=== PATIENT | male | born 1950 | race Caucasian/White ===

== ENCOUNTER 2017-11-05 18:33 | Inpatient (IN) | payer MEDICARE ==
[~2017-11-05] VITALS: Ht 193 cm; Wt 108.6 kg
[2017-11-05 18:57] LABS: BASOPHILS % (AUTO) 0.5 % (0-1); EOSINOPHILS # (AUTO) 0.3 X10'3 (0-0.9); EOSINOPHILS % (AUTO) 3.6 % (0-6); HEMATOCRIT 47.3 % (42.0-52.0); HEMOGLOBIN 16.5 g/dl (14.0-17.9); LYMPHOCYTES # (AUTO) 2.8 X10'3 (1.1-4.8); LYMPHOCYTES % (AUTO) 32.8 % (21-51); MEAN CORPUSCULAR HEMOGLOBIN 29.1 PG (27.0-31.0); MEAN CORPUSCULAR HGB CONC 34.8 % (33.0-36.5); MEAN CORPUSCULAR VOLUME 83.8 FL (78-98); MONOCYTES # (AUTO) 0.5 X10'3 (0-0.9); NEUTROPHILS # (AUTO) 4.9 X10'3 (1.8-7.7); NEUTROPHILS % (AUTO) 57.1 % (42-75); PLATELET COUNT 290 X10'3 (140-440); RED BLOOD COUNT 5.65 X10'6 (4.70-6.10); RED CELL DISTRIBUTION WIDTH 14.2 % (11.5-14.5); WHITE BLOOD COUNT 8.6 X10'3 (4.5-11.0)
[2017-11-05] MEDS ORDERED: APIX5TAB3 PO (18:57)
[2017-11-05] MEDS ORDERED: TAMS0.4C32 PO (18:58)
[2017-11-05] MEDS ORDERED: ATOR10TA87 PO (18:58)
[2017-11-05] MEDS ORDERED: FINA5TAB11 PO (18:58)
[2017-11-05] MEDS ORDERED: aspirin 81mg tab.chew PO ONE (19:05)
[2017-11-05] MEDS ORDERED: metoprolol tartrate 1mg/ml inj IV ONE (19:05)
[2017-11-05 19:09] LABS: PARTIAL THROMBOPLASTIN TIME 28 SECONDS (22-32); PROTHROMBIN TIME 10.3 SECONDS (9.0-12.0)
[2017-11-05 19:13] LABS: ALANINE AMINOTRANSFERASE 19 U/L (12-78); ALBUMIN 3.6 G/DL (3.4-5.0); ALBUMIN/GLOBULIN RATIO 1.1 (1.1-1.5); ALKALINE PHOSPHATASE 65 IU/L (46-116); ANION GAP 10 (8-16); ASPARTATE AMINO TRANSFERASE 12 U/L (10-37); BILIRUBIN,TOTAL 0.3 MG/DL (0.1-1.0); BLOOD UREA NITROGEN 19 MG/DL (7-18); BUN/CREATININE RATIO 12.9 (5.4-32.0); CALCIUM 9.6 MG/DL (8.5-10.1); CHLORIDE 103 MMOL/L (99-107); CREATININE 1.47 MG/DL (0.60-1.10); GLUCOSE 249 MG/DL (70-104); POTASSIUM 4.5 MMOL/L (3.5-5.1); SODIUM 137 MMOL/L (135-145); TOTAL CARBON DIOXIDE 24.3 MMOL/L (24-32); eGFR 48 ML/MIN
[2017-11-05 19:34] LABS: MAGNESIUM 1.8 MG/DL (1.5-2.4)
[2017-11-05] MEDS ORDERED: normal saline 1000ml 1,000 ML IV ONE (20:10)
[2017-11-05] MEDS ORDERED: metoprolol tartrate 50mg tablet PO ONE (20:20)
[2017-11-05] MEDS ORDERED: acetaminophen 325mg tablet PO PRN ×2 (20:20)
[2017-11-05] MEDS ORDERED: magnesium hydroxide 30ml (MOM) UD suspension PO PRN (20:20)
[2017-11-05] MEDS ORDERED: insulin glargine (Lantus) pen - multi-dose SQ ONE (20:20)
[2017-11-05] MEDS ORDERED: ondansetron/PF 4mg/2ml inj IV PRN (20:20)
[2017-11-05] MEDS ORDERED: mag hydrox/Alum hydrox/simeth 30ml oral suspension PO PRN (20:20)
[2017-11-05] MEDS ORDERED: MESSAGE TO PHARMACY PO ONE (20:25)
[2017-11-05] MEDS ORDERED: dextrose ORAL solution 15 GM/59 ML bottle PO PRN ×2 (20:25)
[2017-11-05] MEDS ORDERED: glucagon, human recombinant 1mg kit SUBCUT PRN (20:25)
[2017-11-05] MEDS ORDERED: dextrose 50%-water 50ml dispensing syringe IV PRN ×2 (20:25)
[2017-11-05] MEDS ORDERED: insulin Lispro (HumaLOG) vial - multi-dose SQ SCH (20:25)
[2017-11-05] MEDS: apixaban 5mg tablet PO SCH (21:00)
[2017-11-05] MEDS ORDERED: insulin glargine (Lantus) pen - multi-dose SQ SCH (21:00)
[2017-11-05] MEDS ORDERED: tamsulosin 0.4mg capsule PO SCH (21:00)
[2017-11-05 21:20] VITALS: BP 151/99
[2017-11-05 23:00] VITALS: BP 109/64
[2017-11-06 00:13] LABS: HEMOGLOBIN A1C 6.7 % (4.5-6.2)
[2017-11-06 03:00] VITALS: BP 104/72
[2017-11-06 03:42] LABS: BASOPHILS # (AUTO) 0.1 X10'3 (0-0.2); BASOPHILS % (AUTO) 0.8 % (0-1); EOSINOPHILS # (AUTO) 0.4 X10'3 (0-0.9); EOSINOPHILS % (AUTO) 3.9 % (0-6); HEMATOCRIT 44.8 % (42.0-52.0); HEMOGLOBIN 15.5 g/dl (14.0-17.9); LYMPHOCYTES # (AUTO) 3.4 X10'3 (1.1-4.8); MEAN CORPUSCULAR HEMOGLOBIN 29.4 PG (27.0-31.0); MEAN CORPUSCULAR HGB CONC 34.7 % (33.0-36.5); MEAN CORPUSCULAR VOLUME 84.6 FL (78-98); MEAN PLATELET VOLUME 9.1 FL (7.4-10.4); MONOCYTES # (AUTO) 0.6 X10'3 (0-0.9); MONOCYTES % (AUTO) 6.7 % (2-12); NEUTROPHILS # (AUTO) 4.8 X10'3 (1.8-7.7); NEUTROPHILS % (AUTO) 51.6 % (42-75); PLATELET COUNT 256 X10'3 (140-440); RED BLOOD COUNT 5.29 X10'6 (4.70-6.10); RED CELL DISTRIBUTION WIDTH 14.2 % (11.5-14.5); WHITE BLOOD COUNT 9.2 X10'3 (4.5-11.0)
[2017-11-06 05:30] VITALS: BP 112/73
[2017-11-06] MEDS: apixaban 5mg tablet PO SCH (07:29)
[2017-11-06] MEDS ORDERED: finasteride 5mg tablet PO SCH (08:00)
[2017-11-06] MEDS ORDERED: metoprolol tartrate 25mg tablet PO SCH (08:00)
[2017-11-06] MEDS ORDERED: atorvastatin 10mg tablet PO SCH (08:00)
[2017-11-06 11:00] VITALS: BP 102/61
== END 2017-11-06 14:45 | disposition home or self-care (01) | DRG 309 ==
LOC: ER 18:34 → ED HOLD 20:19 → PCU 3S 21:07
PROVIDERS: ADMIT Internal Medicine; ATTEND Internal Medicine
DX: I48.91 Unspecified atrial fibrillation (principal); S37.009A Unspecified injury of unspecified kidney, initial encounter; E78.5 Hyperlipidemia, unspecified; E11.9 Type 2 diabetes mellitus without complications; E78.00 Pure hypercholesterolemia, unspecified; N40.0 Benign prostatic hyperplasia without lower urinary tract symptoms; G89.29 Other chronic pain; M54.9 Dorsalgia, unspecified; F17.210 Nicotine dependence, cigarettes, uncomplicated; Z79.899 Other long term (current) drug therapy; Z79.01 Long term (current) use of anticoagulants; Z71.6 Tobacco abuse counseling; X58.XXXA Exposure to other specified factors, initial encounter; Y93.89 Activity, other specified; Y92.89 Other specified places as the place of occurrence of the external cause; Y99.8 Other external cause status
CPT/HCPCS: 36415; 71045; 80053; 82948; 83036; 83735; 83880; 84484; 85025; 85610; 85730; 87070; 93306; 96374; 99285; J1815; J3490; J7030

== ENCOUNTER 2018-02-22 06:51 | Day surgery (SDC) | payer MEDICARE ==
[2018-02-21 10:09] LABS: BASOPHILS % (AUTO) 0.5 % (0-1); EOSINOPHILS # (AUTO) 0.4 X10'3 (0-0.9); EOSINOPHILS % (AUTO) 4.3 % (0-6); HEMATOCRIT 44.6 % (42.0-52.0); HEMOGLOBIN 14.9 g/dl (14.0-17.9); LYMPHOCYTES # (AUTO) 2.5 X10'3 (1.1-4.8); LYMPHOCYTES % (AUTO) 29.1 % (21-51); MEAN CORPUSCULAR HEMOGLOBIN 28.8 PG (27.0-31.0); MEAN CORPUSCULAR HGB CONC 33.5 % (33.0-36.5); MEAN CORPUSCULAR VOLUME 86.1 FL (78-98); MEAN PLATELET VOLUME 8.5 FL (7.4-10.4); MONOCYTES # (AUTO) 0.5 X10'3 (0-0.9); MONOCYTES % (AUTO) 5.4 % (2-12); NEUTROPHILS # (AUTO) 5.3 X10'3 (1.8-7.7); NEUTROPHILS % (AUTO) 60.7 % (42-75); PLATELET COUNT 260 X10'3 (140-440); RED BLOOD COUNT 5.18 X10'6 (4.70-6.10); RED CELL DISTRIBUTION WIDTH 14.2 % (11.5-14.5); WHITE BLOOD COUNT 8.6 X10'3 (4.5-11.0)
[2018-02-21 10:21] LABS: ALBUMIN 3.6 G/DL (3.4-5.0); ANION GAP 8 (8-16); BLOOD UREA NITROGEN 21 MG/DL (7-18); BUN/CREATININE RATIO 16.5 (5.4-32.0); CHLORIDE 105 MMOL/L (99-107); CREATININE 1.27 MG/DL (0.60-1.10); GLUCOSE 164 MG/DL (70-104); POTASSIUM 4.5 MMOL/L (3.5-5.1); SODIUM 141 MMOL/L (135-145); TOTAL CARBON DIOXIDE 27.9 MMOL/L (24-32); eGFR 57 ML/MIN
[2018-02-21 10:44] LABS: INR 1.1 INR; PROTHROMBIN TIME 10.7 SECONDS (9.0-12.0)
[~2018-02-22] VITALS: Ht 193 cm; Wt 117.3 kg
[~2018-02-22 06:51] MED LIST: APIX5TAB3 PO; ATOR10TA87 PO; FINA5TAB11 PO; TAMS0.4C32 PO
[2018-02-22 07:00] VITALS: BP 144/80
[2018-02-22] MEDS ORDERED: LORazepam 0.5 MG tablet PO ONE (07:35)
[2018-02-22] MEDS ORDERED: diphenhydrAMINE 25mg capsule PO ONE (07:35)
[2018-02-22] MEDS ORDERED: fentaNYL/PF 50MCG/1 ML 2ML syringe IV ONE (07:35)
[2018-02-22] MEDS ORDERED: amiodarone in dextrose, iso-osm 150mg/100ml bag IV ONE (07:35)
[2018-02-22] MEDS ORDERED: MIDAZolam 5mg/ml 2ml vial IV ONE (07:35)
[2018-02-22] MEDS ORDERED: atropine 0.1mg/ml 10ml syringe IV ONE (07:35)
[2018-02-22] MEDS ORDERED: normal saline 1000ml 1,000 ML IV SCH (07:35)
== END 2018-02-22 08:00 | disposition home or self-care (01) ==
LOC: SSTAY O 06:51
PROVIDERS: ATTEND Internal Medicine Cardiovascular Disease
DX: I48.0 Paroxysmal atrial fibrillation (principal); Z53.8 Procedure and treatment not carried out for other reasons; E11.9 Type 2 diabetes mellitus without complications; I10 Essential (primary) hypertension; M19.90 Unspecified osteoarthritis, unspecified site; E66.9 Obesity, unspecified; E78.5 Hyperlipidemia, unspecified; G47.33 Obstructive sleep apnea (adult) (pediatric); F17.210 Nicotine dependence, cigarettes, uncomplicated; Z68.31 Body mass index [BMI] 31.0-31.9, adult; Z85.828 Personal history of other malignant neoplasm of skin; Z72.89 Other problems related to lifestyle; Z79.01 Long term (current) use of anticoagulants; Z79.4 Long term (current) use of insulin; Z87.442 Personal history of urinary calculi; Z79.899 Other long term (current) drug therapy; Z98.890 Other specified postprocedural states; Z82.49 Family history of ischemic heart disease and other diseases of the circulatory system
CPT/HCPCS: 36415; 80048; 85025; 85610; 93005; J7030

== ENCOUNTER 2019-02-18 09:32 | Emergency (ER) | payer MEDICARE ==
[~2019-02-18] VITALS: Ht 193 cm; Wt 116.6 kg
[2019-02-18 10:45] LABS: BASOPHILS # (AUTO) 0.1 X10'3 (0-0.2); BASOPHILS % (AUTO) 0.7 % (0-1); EOSINOPHILS # (AUTO) 0.2 X10'3 (0-0.9); HEMATOCRIT 46.8 % (42.0-52.0); LYMPHOCYTES # (AUTO) 2.5 X10'3 (1.1-4.8); LYMPHOCYTES % (AUTO) 21.8 % (21-51); MEAN CORPUSCULAR HEMOGLOBIN 29.9 PG (27.0-31.0); MEAN CORPUSCULAR HGB CONC 34.1 g/dL (33.0-36.5); MEAN CORPUSCULAR VOLUME 87.5 FL (78-98); MONOCYTES # (AUTO) 0.8 X10'3 (0-0.9); MONOCYTES % (AUTO) 6.6 % (2-12); NEUTROPHILS % (AUTO) 68.9 % (42-75); PLATELET COUNT 265 X10'3 (140-440); RED BLOOD COUNT 5.35 X10'6 (4.70-6.10); RED CELL DISTRIBUTION WIDTH 14.2 % (11.5-14.5); WHITE BLOOD COUNT 11.6 X10'3 (4.5-11.0)
[2019-02-18 10:52] LABS: CLARITY,URINE CLOUDY (Clear); COLOR,URINE YELLOW (Yellow); GLUCOSE, URINE NEGATIVE (Neg); KETONES,URINE NEGATIVE (Neg); LEUKOCYTE ESTERASE ,URINE NEGATIVE (Neg); NITRITES, URINE NEGATIVE (Neg); OCCULT BLOOD,URINE NEGATIVE (Neg); PH,URINE 5.5 (4.8-8.0); PROTEIN,URINE TRACE mg/dl (Neg)
[2019-02-18 10:57] LABS: UA COLLECTION TYPE VOIDED
[2019-02-18 10:59] LABS: PARTIAL THROMBOPLASTIN TIME 30 SECONDS (22-32)
[2019-02-18 10:59] LABS: BACTERIA,URINE 2+ /HPF (Neg); MUCUS STRANDS MODERATE /LPF (Neg); RBC,URINE 0-2 /HPF (0-2); SQUAMOUS EPITHELIAL CELL,UR FEW /LPF (FEW)
[2019-02-18 11:19] LABS: ALANINE AMINOTRANSFERASE 17 U/L (12-78); ALBUMIN 3.3 G/DL (3.4-5.0); ALBUMIN/GLOBULIN RATIO 0.9 (1.1-1.5); ALKALINE PHOSPHATASE 82 IU/L (46-116); ANION GAP 8 (8-16); ASPARTATE AMINO TRANSFERASE 11 U/L (10-37); BILIRUBIN,TOTAL 0.8 MG/DL (0.1-1.0); BLOOD UREA NITROGEN 14 MG/DL (7-18); BUN/CREATININE RATIO 11.9 (5.4-32.0); CHLORIDE 104 MMOL/L (99-107); CREATININE 1.18 MG/DL (0.60-1.10); GLUCOSE 202 MG/DL (70-104); MAGNESIUM 1.7 MG/DL (1.5-2.4); POTASSIUM 4.4 MMOL/L (3.5-5.1); SODIUM 138 MMOL/L (135-145); TOTAL CARBON DIOXIDE 26.3 MMOL/L (24-32); TOTAL PROTEIN 6.8 G/DL (6.4-8.2); eGFR 62 ML/MIN
[2019-02-18] MEDS ORDERED: levoFLOXACIN 750MG TABLET PO ONE (11:35)
[2019-02-18] MEDS ORDERED: metroNIDAZOLE 500mg tablet PO ONE (11:35)
[2019-02-18] MEDS ORDERED: METR-159 PO (11:40)
[2019-02-18] MEDS ORDERED: LEVO750T21 PO (11:40)
[2019-02-18 12:16] VITALS: BP 114/63
== END 2019-02-18 12:18 | disposition home or self-care (01) ==
LOC: ER 09:32
DX: K57.32 Diverticulitis of large intestine without perforation or abscess without bleeding (principal); N39.0 Urinary tract infection, site not specified; E78.00 Pure hypercholesterolemia, unspecified; Z87.442 Personal history of urinary calculi; Z79.899 Other long term (current) drug therapy
CPT/HCPCS: 36415; 71045; 74176; 80053; 81001; 83605; 83735; 84145; 85025; 85610; 85730; 87040; 87088; 93005; 99284; J3490

== ENCOUNTER 2020-03-05 06:58 | Day surgery (SDC) | payer MEDICARE ==
[2020-03-04 12:33] LABS: BASOPHILS # (AUTO) 0.1 X10'3 (0-0.2); BASOPHILS % (AUTO) 0.8 % (0-1); EOSINOPHILS # (AUTO) 0.1 X10'3 (0-0.9); EOSINOPHILS % (AUTO) 1.2 % (0-6); HEMATOCRIT 51.2 % (42.0-52.0); HEMOGLOBIN 17.3 g/dl (14.0-17.9); LYMPHOCYTES # (AUTO) 2.3 X10'3 (1.1-4.8); LYMPHOCYTES % (AUTO) 25.2 % (21-51); MEAN CORPUSCULAR HEMOGLOBIN 29.8 PG (27.0-31.0); MEAN CORPUSCULAR HGB CONC 33.9 g/dL (33.0-36.5); MEAN PLATELET VOLUME 9.1 FL (7.4-10.4); MONOCYTES # (AUTO) 0.5 X10'3 (0-0.9); MONOCYTES % (AUTO) 5.7 % (2-12); NEUTROPHILS # (AUTO) 6.1 X10'3 (1.8-7.7); NEUTROPHILS % (AUTO) 67.1 % (42-75); PLATELET COUNT 278 X10'3 (140-440); RED BLOOD COUNT 5.81 X10'6 (4.70-6.10); RED CELL DISTRIBUTION WIDTH 14.3 % (11.5-14.5); WHITE BLOOD COUNT 9.1 X10'3 (4.5-11.0)
[2020-03-04 12:42] LABS: ALBUMIN 3.8 G/DL (3.4-5.0); ANION GAP 8 (8-16); BLOOD UREA NITROGEN 21 MG/DL (7-18); BUN/CREATININE RATIO 16.3 (5.4-32.0); CALCIUM 9.4 MG/DL (8.5-10.1); CHLORIDE 108 MMOL/L (99-107); CREATININE 1.29 MG/DL (0.60-1.10); GLUCOSE 131 MG/DL (70-104); POTASSIUM 4.3 MMOL/L (3.5-5.1); SODIUM 143 MMOL/L (135-145); TOTAL CARBON DIOXIDE 27.5 MMOL/L (24-32); eGFR 55 ML/MIN
[2020-03-05] VITALS (30 sets, daily range): BP systolic 93–123; BP diastolic 56–79
[~2020-03-05] VITALS: Ht 193 cm; Wt 123.1 kg
[2020-03-05] MEDS ORDERED: ATOR10TA70 PO (07:16)
[2020-03-05] MEDS ORDERED: NOVLG SQ (07:16)
[2020-03-05] MEDS ORDERED: LISI-604 PO (07:16)
[2020-03-05] MEDS ORDERED: LANTUS SQ (07:16)
[2020-03-05] MEDS ORDERED: SOTA80TA10 PO (07:16)
[2020-03-05] MEDS ORDERED: ALLO300T8 PO (07:16)
[2020-03-05] MEDS ORDERED: CELE-85 PO (07:16)
[2020-03-05] MEDS ORDERED: morphine 10mg/ml inj. IV ONE (08:50)
[2020-03-05] MEDS ORDERED: diphenhydrAMINE 25mg capsule PO ONE (08:50)
[2020-03-05] MEDS ORDERED: atropine 0.1mg/ml 10ml syringe IV ONE (08:50)
[2020-03-05] MEDS ORDERED: amiodarone 150mg/dext, iso-os 100 ML IV ONE (08:50)
[2020-03-05] MEDS ORDERED: LORazepam 0.5 MG tablet PO ONE (08:50)
[2020-03-05] MEDS ORDERED: MIDAZolam 1mg/ml 10ml vial IV ONE (08:50)
[2020-03-05] MEDS ORDERED: amiodarone/D5 360MG/200ML BAG 200 ML IV SCH (10:10)
== END 2020-03-05 16:15 | disposition home or self-care (01) ==
LOC: SSTAY O 06:58
PROVIDERS: ATTEND Internal Medicine Cardiovascular Disease
DX: I48.19 Other persistent atrial fibrillation (principal); G47.33 Obstructive sleep apnea (adult) (pediatric); E11.9 Type 2 diabetes mellitus without complications; I10 Essential (primary) hypertension; E78.5 Hyperlipidemia, unspecified; G47.30 Sleep apnea, unspecified; J44.9 Chronic obstructive pulmonary disease, unspecified; F17.210 Nicotine dependence, cigarettes, uncomplicated; Z87.442 Personal history of urinary calculi; Z79.899 Other long term (current) drug therapy; Z98.890 Other specified postprocedural states; Z79.01 Long term (current) use of anticoagulants; Z79.4 Long term (current) use of insulin; Z82.49 Family history of ischemic heart disease and other diseases of the circulatory system
CPT/HCPCS: 36415; 80048; 82948; 85025; 85610; 92960; 93005; 94799; J0461; J2250; J2270; Q0163

== ENCOUNTER 2020-04-02 07:07 | Day surgery (SDC) | payer MEDICARE ==
[2020-04-01 12:00] LABS: HEMOGLOBIN 17.8 g/dl (14.0-17.9); MEAN CORPUSCULAR HEMOGLOBIN 30.7 PG (27.0-31.0); MEAN PLATELET VOLUME 9.3 FL (7.4-10.4); PLATELET COUNT 239 X10'3 (140-440)
[2020-04-01 12:01] LABS: BASOPHILS # (AUTO) 0.1 X10'3 (0-0.2); BASOPHILS % (AUTO) 0.5 % (0-1); EOSINOPHILS # (AUTO) 0.1 X10'3 (0-0.9); EOSINOPHILS % (AUTO) 1.1 % (0-6); HEMATOCRIT 51.7 % (42.0-52.0); LYMPHOCYTES # (AUTO) 1.6 X10'3 (1.1-4.8); LYMPHOCYTES % (AUTO) 15.2 % (21-51); MEAN CORPUSCULAR HGB CONC 34.3 g/dL (33.0-36.5); MEAN CORPUSCULAR VOLUME 89.5 FL (78-98); MONOCYTES # (AUTO) 0.6 X10'3 (0-0.9); MONOCYTES % (AUTO) 5.4 % (2-12); NEUTROPHILS # (AUTO) 8.4 X10'3 (1.8-7.7); NEUTROPHILS % (AUTO) 77.8 % (42-75); RED BLOOD COUNT 5.78 X10'6 (4.70-6.10); RED CELL DISTRIBUTION WIDTH 15.1 % (11.5-14.5); WHITE BLOOD COUNT 10.8 X10'3 (4.5-11.0)
[2020-04-01 12:18] LABS: ANION GAP 9 (8-16); BLOOD UREA NITROGEN 19 MG/DL (7-18); BUN/CREATININE RATIO 12.7 (5.4-32.0); CALCIUM 8.9 MG/DL (8.5-10.1); CHLORIDE 104 MMOL/L (99-107); GLUCOSE 187 MG/DL (70-104); POTASSIUM 4.4 MMOL/L (3.5-5.1); SODIUM 138 MMOL/L (135-145); TOTAL CARBON DIOXIDE 24.9 MMOL/L (24-32); eGFR 47 ML/MIN
[2020-04-02] VITALS (17 sets, daily range): BP systolic 113–146; BP diastolic 69–93
[~2020-04-02] VITALS: Ht 193 cm; Wt 121.6 kg
[~2020-04-02 07:07] MED LIST changes: +ALLO300T8 PO; +ATOR10TA70 PO; -ATOR10TA87 PO; +CELE-85 PO; +LANTUS SQ; +LISI-604 PO; +NOVLG SQ; +SOTA80TA10 PO
[2020-04-02] MEDS ORDERED: LORazepam 0.5 MG tablet PO ONE (07:25)
[2020-04-02] MEDS ORDERED: morphine 10mg/ml inj. IV ONE (07:25)
[2020-04-02] MEDS ORDERED: normal saline 1000ml 1,000 ML IV SCH (07:25)
[2020-04-02] MEDS ORDERED: MIDAZolam 1mg/ml 10ml vial IV ONE (07:25)
[2020-04-02] MEDS ORDERED: atropine 0.1mg/ml 10ml syringe IV ONE (07:25)
[2020-04-02] MEDS ORDERED: amiodarone 150mg/dext, iso-os 100 ML IV ONE (08:10)
[2020-04-02] MEDS ORDERED: AMIO200T61 PO (08:29)
[2020-04-02] MEDS ORDERED: NALT1TAB PO (08:31)
== END 2020-04-02 11:05 | disposition home or self-care (01) ==
LOC: SSTAY O 07:07
PROVIDERS: ATTEND Internal Medicine Cardiovascular Disease
DX: I48.19 Other persistent atrial fibrillation (principal); I10 Essential (primary) hypertension; E78.5 Hyperlipidemia, unspecified; E11.9 Type 2 diabetes mellitus without complications; J44.9 Chronic obstructive pulmonary disease, unspecified; G47.33 Obstructive sleep apnea (adult) (pediatric); F17.210 Nicotine dependence, cigarettes, uncomplicated; Z87.442 Personal history of urinary calculi; Z79.4 Long term (current) use of insulin; Z79.899 Other long term (current) drug therapy; Z79.01 Long term (current) use of anticoagulants; Z98.890 Other specified postprocedural states; Z82.49 Family history of ischemic heart disease and other diseases of the circulatory system
CPT/HCPCS: 36415; 80048; 85025; 85610; 92960; 93005; 94760; 94799; J2250; J2270; J7030

== ENCOUNTER 2020-05-20 14:00 | Outpatient (CLI) | payer MEDICARE ==
[~2020-05-20 14:00] MED LIST changes: +AMIO200T61 PO; +NALT1TAB PO; -SOTA80TA10 PO
[2020-05-20 14:46] LABS: TOTAL HEMOGLOBIN 18.3 G/dl (14.0-18.0)
== END 2020-05-20 23:59 | disposition home or self-care (01) ==
LOC: RT 14:00
PROVIDERS: ATTEND Internal Medicine Cardiovascular Disease
DX: J44.9 Chronic obstructive pulmonary disease, unspecified (principal); Z79.899 Other long term (current) drug therapy
CPT/HCPCS: 71046; 85018; 94010; 94727; 94729

== ENCOUNTER 2022-12-09 08:34 | Outpatient (CLI) | payer MEDICARE ==
[~2022-12-09 08:34] MED LIST changes: +AMI200T PO; -AMIO200T61 PO; -LISI-604 PO; +LISI5TAB22 PO
[2022-12-09 08:55] LABS: TOTAL HEMOGLOBIN 16.4 G/dl (14.0-17.9)
== END 2022-12-09 23:59 | disposition home or self-care (01) ==
LOC: RT 08:34
PROVIDERS: ATTEND Internal Medicine Cardiovascular Disease
DX: R94.2 Abnormal results of pulmonary function studies (principal); Z79.899 Other long term (current) drug therapy
CPT/HCPCS: 85018; 94010; 94727; 94729